=== PATIENT | female | born 1950 | race American Indian/Alaskan Native ===

== ENCOUNTER → 2019-07-07 | Outpatient (CLI) | payer OTHER ==
[~2019-07-07] MED LIST: COL100 PO; FLO4 PO; JANUVIA25 M1 PO; LEVAQUIN750 MG PO; LOVASTATIN40 MG PO; METFORMIN HCL1000 MG PO; NORCO1 TA2 PO; PRILOSEC20 MG PO
== END | disposition home or self-care (01) ==
LOC: MA 06-30 15:00
PROC: BH02ZZZ Plain Radiography of Bilateral Breasts (ICD-10-PCS; principal; 2019-07-07)
DX: Z12.31 Encounter for screening mammogram for malignant neoplasm of breast (principal)
CPT/HCPCS: 77067